=== PATIENT | male | born 1990 | race Caucasian/White ===

== ENCOUNTER → 2024-06-07 15:44 | Outpatient (REF) | payer OTHER, SELFPAY | LOC: RAD 15:44 | PROVIDERS: ATTENDING PHYSICIAN Internal Medicine | DX: M54.6 Pain in thoracic spine (principal); R07.89 Other chest pain | CPT/HCPCS: 71046 ==

== ENCOUNTER → 2024-07-13 19:35 | Outpatient (REF) | payer OTHER, SELFPAY | LOC: MRI 19:35 | PROVIDERS: ATTENDING PHYSICIAN Internal Medicine | DX: M54.6 Pain in thoracic spine (principal); G89.29 Other chronic pain; R22.2 Localized swelling, mass and lump, trunk | CPT/HCPCS: 72157; A9575 ==

== ENCOUNTER → 2024-08-03 15:11 | Outpatient (REF) | payer OTHER, SELFPAY | LOC: HWRAD 15:11 | PROVIDERS: ATTENDING PHYSICIAN Hospitalist | DX: M79.89 Other specified soft tissue disorders (principal) | CPT/HCPCS: 76604 ==

== ENCOUNTER 2024-08-29 09:58 | Outpatient (RCR) | payer OTHER, SELFPAY | END 2024-08-29 23:59 | disposition home or self-care (01) | LOC: RPT 09:58 | PROVIDERS: ATTENDING PHYSICIAN Hospitalist | DX: M54.6 Pain in thoracic spine (principal); Z73.6 Limitation of activities due to disability; R26.2 Difficulty in walking, not elsewhere classified; M62.81 Muscle weakness (generalized); G89.29 Other chronic pain | CPT/HCPCS: 97110; 97162 ==

== ENCOUNTER → 2025-02-10 15:18 | Outpatient (REF) | payer OTHER, SELFPAY | LOC: RAD 15:18 | PROVIDERS: ATTENDING PHYSICIAN Hospitalist; FAMILY PHYSICIAN Internal Medicine | DX: R10.13 Epigastric pain (principal) | CPT/HCPCS: 76705 ==

== ENCOUNTER → 2025-03-13 11:24 | Outpatient (REF) | payer OTHER, SELFPAY | LOC: RAD 11:24 | PROVIDERS: ATTENDING PHYSICIAN Internal Medicine | DX: K43.9 Ventral hernia without obstruction or gangrene (principal) | CPT/HCPCS: 74177; Q9967 ==